=== PATIENT | female | born 1965 | race Caucasian/White ===

== ENCOUNTER → 2017-06-01 | Outpatient (CLI) | payer BC ==
--- NOTE | 2017-06-04 08:09 | MM ---
Reason for exam: additional evaluation requested from prior study. Last mammogram was performed 1 year and 10 months ago. History: Patient is postmenopausal and has history of high-risk lesion on a previous biopsy at age 42. Family history of breast cancer in paternal aunt and breast cancer in maternal aunt. Benign left US cyst aspiration of the left breast, December 04, 2007. Excisional biopsy of the left breast, August 09, 2007. Excisional biopsy of the right breast, August 09, 2007. High risk cyst aspiration of the left breast, July 22, 2007. Benign cyst aspiration of the left breast, April 04, 2006. Benign excisional biopsy of the right breast, September 12, 2002. Physical Findings: Nurse Summary: 1cm nodule in the right breast at 10, 1 and 4 o'clock, and a 1 cm nodule in the left breast at 8 and 1 o'clock (nurse mj). MG 3D Diag Mammo W/Cad [facility] Bilateral CC and MLO view(s) were taken. XCCL view(s) were taken of the right breast. Prior study comparison: August 03, 2015, bilateral MG screening mammo w CAD. The breast tissue is extremely dense which could obscure a lesion on mammography. There is chronic nodularity bilaterally. There is no discrete abnormality. These results were verbally communicated with the patient and result sheet given to the patient on 06/01/17. ASSESSMENT: Incomplete: need additional imaging evaluation, BI-RAD 0 RECOMMENDATION: Ultrasound of both breasts. (nodules and palpables)
--- NOTE | 2017-06-04 08:13 | USB ---
Reason for exam: additional evaluation requested from abnormal screening. History: Patient is postmenopausal and has history of high-risk lesion on a previous biopsy at age 42. Family history of breast cancer in paternal aunt and breast cancer in maternal aunt. Benign left US cyst aspiration of the left breast, December 04, 2007. Excisional biopsy of the left breast, August 09, 2007. Excisional biopsy of the right breast, August 09, 2007. High risk cyst aspiration of the left breast, July 22, 2007. Benign cyst aspiration of the left breast, April 04, 2006. Benign excisional biopsy of the right breast, September 12, 2002. US Breast Workup Limited [facility] Right breast ultrasound demonstrates a 0.9 x 1.0 x 0.5cm cystic lesion at 10 o'clock, a 1.4 x 1.4 x 1.0cm cystic lesion at 10 o'clock, a 0.5 x 0.4 x 0.3cm cystic lesion at 1 o'clock and a 1.0 x 1.0 x 0.3cm cystic lesion at 4 o'clock. Left breast ultrasound demonstrates a 1.4 x 1.3 x 1.2cm cystic lesion at 7 o'clock, a 0.6 x 0.6 x 0.5cm hypoechoic lesion at 9 o'clock stable from 2011, a 0.8 x 0.8 x 0.6cm cystic lesion at 11 o'clock and a 0.8 x 0.8 x 0.5cm cystic lesion at 1 o'clock. These results were verbally communicated with the patient and result sheet given to the patient on 06/01/17. ASSESSMENT: Benign, BI-RAD 2 RECOMMENDATION: Routine screening mammogram of both breasts in 1 year. Manage on a clinical basis with regard to bilateral palpables.
== END | disposition home or self-care (01) ==
LOC: RADMAMWWP 14:26
PROVIDERS: ATTEND Family Medicine
DX: N60.09 Solitary cyst of unspecified breast (principal); R92.8 Other abnormal and inconclusive findings on diagnostic imaging of breast
CPT/HCPCS: 76642; G0204; G0279

== ENCOUNTER → 2019-11-28 | Outpatient (CLI) | payer BC ==
--- NOTE | 2019-12-02 10:12 | MM ---
Reason for exam: screening (asymptomatic). Last mammogram was performed 2 years and 6 months ago. History: Patient is postmenopausal and has history of high-risk lesion on a previous biopsy at age 42. Family history of breast cancer in paternal aunt and breast cancer in maternal aunt. Benign left US cyst aspiration of the left breast, December 04, 2007. Excisional biopsy of the left breast, August 09, 2007. Excisional biopsy of the right breast, August 09, 2007. High risk cyst aspiration of the left breast, July 22, 2007. Benign cyst aspiration of the left breast, April 04, 2006. Benign excisional biopsy of the right breast, September 12, 2002. Cyst aspiration of the right breast. Benign excisional biopsy of the right breast. Physical Findings: A clinical breast exam by your physician is recommended on an annual basis and results should be correlated with mammographic findings. MG 3D Screening Mammo W/Cad Bilateral CC and MLO view(s) were taken. Prior study comparison: June 01, 2017, bilateral MG 3d diag mammo w/cad [facility]. August 03, 2015, bilateral MG screening mammo w CAD. The breast tissue is extremely dense which could obscure a lesion on mammography. No significant changes when compared with prior studies. ASSESSMENT: Benign, BI-RAD 2 RECOMMENDATION: Routine screening mammogram of both breasts in 1 year.
== END | disposition home or self-care (01) ==
LOC: RADMAMWWP 16:00
PROVIDERS: ATTEND Family Medicine
DX: Z12.31 Encounter for screening mammogram for malignant neoplasm of breast (principal)
CPT/HCPCS: 77063; 77067

== ENCOUNTER → 2022-10-27 | Outpatient (CLI) | payer BC ==
--- NOTE | 2022-10-28 05:54 | US ---
EXAMINATION TYPE: US thyroid st tissue head/neck DATE OF EXAM: 10/27/2022 COMPARISON: NONE CLINICAL HISTORY: E04.1 NONTOXIC SINGLE THYROID NODULE. Patient states her PCP felt her thyroid was " enlarged" GLAND SIZE: Right Lobe: 4.5 x 1.5 x 1.1 cm Overall Parenchyma: homogenous Left Lobe: 4.6 x 1.3 x 1.1 cm Overall Parenchyma: homogeneous Isthmus Thickness: 0.12 cm NODULES RIGHT: # of nodules measured on right: 0 LEFT: # of nodules measured on left: 0 ISTHMUS: # of nodules measured in the isthmus: 0 Bilateral neck scanned, no evidence of lymphadenopathy. Homogeneous normal-sized thyroid without focal nodule. IMPRESSION: Normal study.
== END | disposition home or self-care (01) ==
LOC: RADUSWWP 16:43
PROVIDERS: ATTEND Family Medicine
DX: E04.1 Nontoxic single thyroid nodule (principal)
CPT/HCPCS: 76536

== ENCOUNTER → 2023-07-09 | Outpatient (CLI) | payer BC ==
--- NOTE | 2023-07-11 18:02 | MM ---
Reason for Exam: Screening (asymptomatic). Last mammogram was performed 3 year(s) and 7 month(s) ago. Patient History: Menarche at age 12. First Full-Term at age 23. Postmenopausal. 07/22/2007, High risk Cyst Aspiration on the left side. 08/09/2007, Excisional Biopsy on the Left side. 08/09/2007, Excisional Biopsy on the Right side. 04/04/2006, Benign Cyst Aspiration on the left side. Cyst Aspiration on the Right side. Benign Excisional Biopsy on the right side. 12/04/2007, Benign Cyst Aspiration on the left side. 09/12/2002, Benign Excisional Biopsy on the right side. Paternal aunt had breast cancer. Maternal aunt had breast cancer. Risk Values: [place] 5 year model risk: 1.9%. NCI Lifetime model risk: 10.0%. Prior Study Comparison: 08/03/2015 Bilateral Screening Mammogram, [facility]. 06/01/2017 Bilateral Diagnostic Mammogram, [facility]. 11/28/2019 Bilateral Screening Mammogram, [facility]. Tissue Density: The breast tissue is extremely dense which could obscure a lesion on mammography. Findings: Analyzed By CAD. Pattern appears symmetrical. There are some rounded densities in the lower middle posterior left breast. This was present Previously No suspicious groups of microcalcifications, spiculated or lobular masses, architectural distortion or other secondary signs of malignancy are mammographically apparent. Overall Assessment: Benign, BI-RAD 2 Management: Screening Mammogram of both breasts in 1 year. A negative mammogram report should not preclude additional follow up of suspicious palpable abnormalities. Patient should continue monthly self breast exam. A clinical breast exam by your physician is recommended on an annual basis and results should be correlated with mammographic findings. Electronically signed and approved by: Myles Worthington D.O. Radiologis
== END | disposition home or self-care (01) ==
LOC: RADMAMWWP 16:55
PROVIDERS: ATTEND Family Medicine
DX: Z12.31 Encounter for screening mammogram for malignant neoplasm of breast (principal); Z78.0 Asymptomatic menopausal state; Z80.3 Family history of malignant neoplasm of breast
CPT/HCPCS: 77067